=== PATIENT | female | born 1975 | race Caucasian/White ===

== ENCOUNTER 2021-08-09 12:36 | Emergency (ER) | payer BC ==
[2021-08-09] MEDS ORDERED: Acetaminophen 500 MG TAB ONE (14:50)
[2021-08-10 00:08] LABS: SARS-CoV-2 PCR by NAA Not Detected (NotDetected)
== END 2021-08-09 15:30 | disposition home or self-care (01) ==
LOC: CSHERS 12:36
DX: J06.9 Acute upper respiratory infection, unspecified (principal); Z20.822 Contact with and (suspected) exposure to COVID-19
CPT/HCPCS: 87804; 99283; U0003; U0005